=== PATIENT | male | born 1970 | race Caucasian/White ===

== ENCOUNTER 2020-09-15 08:44 | Day surgery (SDC) | payer BC ==
[~2020-09-15] VITALS: Ht 177.8 cm; Wt 118.7 kg
[~2020-09-15 08:44] MED LIST: ALBU90OI INH; ALLERGY NASAL SPRAY; ALLO100; ASPIR 8181 M1; BENAML10/2; BENAML20/5 PO; FEXO60; HYDACE5 PO; HYDCHL25 PO; KRILL OIL500 MG; MULVITMIND PO; NAPR550 PO; OXYACE5T PO; PRIMATINE INH; PROM25 PO; ZYRTEC10 M1
--- NOTE | 2020-09-15 09:41 | NUR ---
09/15/20 0941 Eryn Richards 1ST I.V. ATTEMPT IN RIGHT HAND BY ELSIE 2ND I.V.ATTEMPT IN RIGHT HAND BY RN 3RD I.V. ATTEMPT IN LEFT HAND BY RN SUCCESSFUL
== END 2020-09-15 11:23 | disposition home or self-care (01) ==
LOC: ORSCSDS 08:44
DX: Z12.11 Encounter for screening for malignant neoplasm of colon (principal); D12.2 Benign neoplasm of ascending colon; D12.3 Benign neoplasm of transverse colon; K62.1 Rectal polyp; I48.0 Paroxysmal atrial fibrillation; I10 Essential (primary) hypertension; G47.33 Obstructive sleep apnea (adult) (pediatric); E66.9 Obesity, unspecified; Z68.37 Body mass index [BMI] 37.0-37.9, adult; Z79.899 Other long term (current) drug therapy; F17.210 Nicotine dependence, cigarettes, uncomplicated
CPT/HCPCS: 88305; J2405; J2704; J7120